=== PATIENT | female | born 1985 | race Caucasian/White ===

== ENCOUNTER → 2017-07-16 19:13 | Outpatient (CLI) | payer MEDICAID, SELFPAY ==
[2017-07-22 10:26] LABS: HPV Reflexed? NOT INDICATED
== END ==
PROVIDERS: Visit Provider Obstetrics & Gynecology
DX: R87.612 Low grade squamous intraepithelial lesion on cytologic smear of cervix (LGSIL) (principal)
CPT/HCPCS: 88175; G0145

== ENCOUNTER → 2017-12-07 17:58 | Outpatient (CLI) | payer MEDICAID, SELFPAY ==
[2017-12-15 11:14] LABS: HPV Reflexed? NOT INDICATED
== END ==
PROVIDERS: Visit Provider Obstetrics & Gynecology
DX: Z12.4 Encounter for screening for malignant neoplasm of cervix (principal)
CPT/HCPCS: 88175; G0145

== ENCOUNTER → 2019-01-03 11:15 | Outpatient (CLI) | payer MEDICAID, SELFPAY ==
[2019-01-09 08:22] LABS: HPV APTIMA, High Risk Positive (Negative)
== END ==
PROVIDERS: Visit Provider Obstetrics & Gynecology
DX: Z12.4 Encounter for screening for malignant neoplasm of cervix (principal)
CPT/HCPCS: 88175; G0145

== ENCOUNTER 2022-08-18 22:27 | Emergency (ER) | payer MEDICAID, SELFPAY ==
[2022-08-18 22:27] VITALS: BP 159/116; PULSE 90; RESP 15; TEMP 36.8; O2SAT 97; BMI 52.3
--- NOTE | 2022-08-18 23:10 | RAD_ITS ---
INDICATION: chest pain EXAMINATION/TECHNIQUE: X-RAY - XR Chest 2 Views COMPARISON: None. FINDINGS: LINES/DEVICES: None. LUNGS: No consolidation, edema or effusion. No pneumothorax. MEDIASTINUM AND CARDIOVASCULAR STRUCTURES: Cardiac silhouette not enlarged. Central airways and mediastinal contour are unremarkable. BONES AND SOFT TISSUES: Unremarkable. RAD/Chest PA and Lateral IMPRESSION: No radiographic evidence of acute cardiopulmonary disease. Electronically Signed: Ching Nielsen MD at 23:39 EDT ,
[2022-08-18 23:32] LABS: Absolute Lymphocyte Count 2.31 X10^3/uL (0.83-4.51); Absolute Neutrophil Count 4.8 X10^3/uL (2.0-7.7); Basophil# 0.06 X10^3/uL; Basophil% 0.7 % (0-1); Eosinophil# 0.23 X10^3/uL; Eosinophils% 2.8 % (0-5); Hematocrit 41.4 % (37-47); Hemoglobin 13.6 g/dL (12.0-15.0); Lymphocyte # 2.31 X10^3/ul (0.83-4.51); Lymphocyte % 27.9 % (19-41); Mean Corp Hgb Conc 32.9 g/dL (32-36); Mean Corpuscular Hgb 28.3 pg (27.0-32.0); Mean Corpuscular Volume 86.3 fL (81-99); Mean Platelet Vol. 9.3 fl (6.2-12.0); Monocyte# 0.81 X10^3/uL; Monocyte% 9.8 % (0-10); NRBC Flagged by Analyzer 0 % (0-5); Neutrophil # 4.78 X10^3/uL (2.7-7.7); Neutrophil % 57.6 % (47-70); Platelet Count 251 K/mm3 (150-450); RBC Distribution Width CV 12.9 % (11.6-14.6); RBC Distribution Width SD 40.1 fl (35.1-43.9); White Blood Count 8.3 K/mm3 (4.4-11.0)
[2022-08-19 00:04] LABS: Anion Gap 8 (5-15); BUN 13 mg/dL (7-18); BUN/Creat Ratio 15.3 RATIO (10-20); Calcium,Total 8.9 mg/dL (8.5-10.1); Chloride 104 mmol/L (98-107); Creatinine, Serum 0.85 mg/dL (0.55-1.02); EST Glomerular Filtration Rate 80 mL/min (>60); Est Glom Filt Rate - Afr Amer 97 mL/min (>60); Estimated Creatinine Clearance 71.67 ml/min; Glucose 225 mg/dL (74-106); Magnesium 1.9 mg/dL (1.6-2.6); Sodium Level 139 mmol/L (136-145); Troponin-I HS 7 pg/mL (3.0-54.0)
[2022-08-19 00:41] LABS: D-Dimer Quantitative (DVT/PE) 1.62 FEU/ug/m (0.27-0.49)
--- NOTE | 2022-08-19 00:51 | CT_ITS ---
STUDY: CTA CHEST REASON FOR EXAM: Female, 37 years old. chest pain RADIATION DOSAGE (If Supplied By Facility): CTDIvol = ( 13.85 ) mGy, DLP = ( 451.10 ) mGycm TECHNIQUE: The examination was performed with the intravenous administration of IV 100mL Isovue-370. Post-processing of the angiographic images was performed, with multiplanar reformation and 3D reconstruction. Individualized dose optimization techniques were used for this CT. COMPARISON: None. FINDINGS: Normal enhancement of the main pulmonary artery and right and left pulmonary arteries. Normal enhancement of the bilateral peripheral pulmonary arteries. There is no demonstrated pulmonary embolism. Normal thoracic aorta and visualized great vessels. There is no demonstrated aortic dissection. Normal heart and pericardium. Normal mediastinum. Normal hilar regions. Normal visualized trachea and bronchi. The lungs are well expanded. Normal pulmonary parenchyma. Normal pleura. Normal chest wall structures. Normal osseous structures. Normal visualized upper abdomen. CT/CTA Chest W/WO Contrast IMPRESSION: No demonstrated pulmonary embolism or arterial dissection. Electronically Signed: Ching Nielsen MD at 2:13 EDT ,
[2022-08-19 01:27] VITALS: PULSE 69
[2022-08-19 02:00] VITALS: BP 145/99
--- NOTE | 2022-08-19 02:19 | EX.ED.DYSGE1 ---
HPI History of Present Illness Chief Complaint: Chest Pain Narrative Narrative: Patient is a 37-year-old female with past medical history of asthma and anxiety. She reports that over the past month she has had intermittent bouts of shortness of breath and in the past 3 to 5 days has noticed some intermittent left-sided chest discomfort. She denies any history of cardiac disease at a young age she denies any illicit drug use and she denies any recent surgery travel or history of DVT/PE. She states however as the symptoms have been recurrent she is concerned for possible cardiac event/disease and therefore comes in for evaluation [facility] Medical History Allergies Asthma MCL sprain of right knee Raynaud disease Tear of lateral meniscus of right knee Home Medications NK 12/29/21 [History Last Taken Unknown] Allergy/AdvReac Type Severity Reaction Status Date / Time Sulfa (Sulfonamide Allergy Mild rash Verified 08/18/22 22:32 Antibiotics) nuts Allergy Mild rash Uncoded 12/29/21 10:26 raw fruit and veggies Allergy Mild swelling Uncoded 12/29/21 10:26 z-pack Allergy Mild face Uncoded 12/29/21 10:26 swelling Family History (Updated 12/29/21 @ 10:28 by Cari Marcelino) Mother Hypertension Cancer Diabetes Father Hypertension Heart disease Surgical History Hx of tonsillectomy Social History (Updated 12/29/21 @ 10:28 by Cari Marcelino) household members: significant other Smoking Status: Never smoker alcohol intake: current alcohol intake frequency: holidays/special occasions only ROS ROS ED Constitutional Constitutional ED: Denies chills or fever(s) ENT ENT ED: Denies sore throat Cardiovascular Cardiovascular: Reports chest pain; Denies palpitations or racing heartbeat Respiratory/Chest Respiratory/Chest: Reports dyspnea; Denies cough Gastrointestinal Gastrointestinal: Denies abdominal pain, diarrhea, nausea or vomiting Genitourinary Genitourinary ED: Denies dysuria Musculoskeletal Musculoskeletal: Denies myalgias Integumentary Denies rash Neurologic Neurologic: Denies headache(s) Hematologic/Lymphatic Hematologic/Lymphatic: Denies easy bleeding or easy bruising EXAM Physical Exam Const Vital Signs: 08/18/22 22:27 08/18/22 22:48 Temperature 98.3 F Temperature Source Temporal Pulse Rate 90 Respiratory Rate 15 Respiratory Effort Normal Non-Labored Blood Pressure 159/116 H Blood Pressure Mean 130 Pulse Ox 97 Oxygen Delivery Method Room Air Positive well nourished, well developed and obese General Appearance ED: well developed Nutritional Appearance: obese HEENT Reports moist mucous membranes Eyes PERRL and EOMs intact bilaterally Neck supple and no JVD Chest Wall Chest Narrative: There is reproducible left anterior chest wall on palpation in the intercostal muscle region ribs 4-6 without bony deformity or crepitance Resp normal respiratory effort and clear to auscultation bilaterally Resp Narrative: No nasal flaring retractions tachypnea or accessory muscle use Cardio regular rate and regular rhythm Rate: other Other Details: Radial pulses are plus 2 out of 4 bilaterally are equal and symmetric GI normal to inspection, nondistended, normoactive bowel sounds, non-tender, non-distended and no masses GI Narrative: No voluntary guarding or rigidity no pulsatile mass Auscultation: normoactive bowel sounds Palpation: soft Extremity Extremity Narrative: There is asymmetric edema that is nonpitting in nature of the left lower leg compared to right. However there is no calf tenderness and there is no overlying erythema or warmth or palpable cord Neuro oriented x3 and CN's II-XII intact bilaterally Sensorium / Orientation: alert Psych mental status grossly normal Skin no rashes or lesions noted MDM MDM MDM Narrative Medical decision making narrative: Patient presented to the ER hypertensive but otherwise with stable vitals. She is low risk for cardiovascular disease but with concern this could be an acute cardiac event possible pulmonary embolus pneumonia or cardiac dysrhythmia a work-up was obtained. Labs revealed no clinically significant findings other than elevated D-dimer. Her EKG is sinus rhythm and her troponin is normal at 7 going against acute cardiac event. Because of the elevated D-dimer a CTA of the chest was obtained. This revealed no PE dissection pneumothorax or lung infection. As she does have asymmetric swelling of the left leg compared to right there is concern that the elevated D-dimer is from a DVT. I cannot perform a venous duplex at this time in the evening. Therefore she was given 1.5 mg a kilogram of Lovenox and then an outpatient order form for venous duplex. The patient was informed of the overall negative results but need to still follow-up regarding the left leg swelling with elevated D-dimer. She agrees to do so and is otherwise hemodynamically stable and safe for discharge at this time. History & Record Review Discussion w/independent historian: Patient and Family Lab Data Attestation: I reviewed the patient's lab results. Labs: Laboratory Results - last 24 hr 08/18/22 08/18/22 08/18/22 00:06 22:48 22:48 WBC 8.3 RBC 4.80 Hgb 13.6 Hct 41.4 MCV 86.3 MCH 28.3 MCHC 32.9 RDW Std Deviation 40.1 RDW Coeff of Na 12.9 Plt Count 251 MPV 9.3 Immature Gran % (Auto) 1.200 H Neut % (Auto) 57.6 Lymph % (Auto) 27.9 [place] % (Auto) 9.8 Eos % (Auto) 2.8 Baso % (Auto) 0.7 Absolute Neuts (auto) 4.8 Absolute Lymphs (auto) 2.31 Nucleated RBC % 0 D-Dimer Quant (PE/DVT) 1.62 H* Sodium 139 Potassium 4.0 Chloride 104 Carbon Dioxide 27.0 Anion Gap 8 BUN 13 Creatinine 0.85 Estim Creat Clear Calc 71.67 Est GFR (MDRD) Af Amer 97 Est GFR (MDRD) Non-Af 80 BUN/Creatinine Ratio 15.3 Glucose 225 H Calcium 8.9 Magnesium 1.9 Troponin I High Sens 7 Radiography Diagnostic Testing: Clinical Impression(s) from Imaging Studies Chest X-Ray 08/18/22 23:10 IMPRESSION: No radiographic evidence of acute cardiopulmonary disease. Electronically Signed: Ching Nielsen MD at 23:39 EDT , Chest CTA 08/19/22 00:51 IMPRESSION: No demonstrated pulmonary embolism or arterial dissection. Electronically Signed: Ching Nielsen MD at 2:13 EDT , Chest x-ray as interpreted by the emergency medicine physician reveals no acute infiltrate pneumothorax or pleural effusion Discharge Plan Triage Chief Complaint: Chest Pain ED Provider: Clifton Lee Dx/Rx/DC Orders Clinical Impression: Acute nonspecific chest pain with low risk of coronary artery disease, Edema of left lower leg, Morbid obesity Instructions: ED Chest Pain, Uncertain Cause, ED Peripheral Edema, Unilateral Prescriptions: No Action NK Other Ambulatory Orders: Venous Duplex US, Unilateral (Stat) Facility: [facility] - Location: [facility] Ordered By: Dr. Clifton Lee Primary Care Provider: Michela Mosley NP Referrals: Michela Mosley NP, [employer] [Primary Care Provider] - Activity Restrictions/Additional Instructions: Your work-up today shows no sign of cardiac damage pneumonia or blood clot in your lungs as a cause of your symptoms. As you do have an elevated D-dimer and left leg swelling there is concern for a deep vein thrombosis. Please return to the hospital on August 19 for your outpatient venous duplex to check for a DVT/blood clot. Please return to the ER should you have any further concerns Disposition Disposition: Home, Self Care
[2022-08-19 02:27] VITALS: PULSE 71; RESP 16; O2SAT 97
[2022-08-19] MEDS: Enoxaparin 100 MG/ML Syringe 195 MG SC (02:30)
== END 2022-08-19 02:35 | disposition home or self-care (01) ==
PROVIDERS: Emergency Provider Emergency Medicine; PCP Nurse Practitioner Family; Visit Provider Emergency Medicine
DX: R07.9 Chest pain, unspecified (principal); E66.01 Morbid (severe) obesity due to excess calories; R60.0 Localized edema; F41.9 Anxiety disorder, unspecified; J45.909 Unspecified asthma, uncomplicated
CPT/HCPCS: 71046; 71275; 80048; 83735; 84484; 85025; 85379; 96372; 99284; Q9967; A4216

== ENCOUNTER → 2022-08-20 | Outpatient (CLI) | payer MEDICAID, SELFPAY ==
--- NOTE | 2022-08-18 22:36 | EKG12_ITS ---
Test Reason : CP Blood Pressure : / mmHG Vent. Rate : 090 BPM Atrial Rate : 090 BPM P-R Int : 142 ms QRS Dur : 070 ms QT Int : 336 ms P-R-T Axes : 036 011 039 degrees QTc Int : 411 ms Normal sinus rhythm Minimal voltage criteria for LVH, may be normal variant ( R in aVL ) Borderline ECG Confirmed by ANIL HAYWOOD, BEAU ([id number]), slot editor ALESHA VALDES ([id number]) on 08/21/2022 6:53:42 AM Referred By: MICHAELA Confirmed By:MICHELE MA MD
--- NOTE | 2022-08-20 12:59 | VDLE_ITS ---
Reason For Study: elevated D-Dimer Procedure LEFT This is a venous duplex using B-mode, color GSV is normal. flow and spectral Doppler. CFV is compressible, spontaneous, phasic, Exam performed in department. competent, and demonstrates normal The exam was abbreviated due to the COVID 19 augmentation. protocol. FV is compressible, spontaneous, phasic, The exam was diagnostic. competent and demonstrates normal A preliminary report was called and/or faxed augmentation. to Micheal PURCELL. POP V is compressible, spontaneous, phasic, competent and demonstrates normal augmentation. T/P Trunk is compressible. PTV is compressible. LT PerV is compressible. VL/Venous Duplex US, Unilateral Interpretation Summary There is no evidence of left lower extremity deep vein thrombosis. Left great s aphenous vein appears patent and compressible segmentally. Abbreviated Covid 19 protocol Ordering Physician: Clifton Lee Performed By: Zenon Ortega RVT
== END | disposition home or self-care (01) ==
PROVIDERS: PCP Nurse Practitioner Family; Visit Provider Emergency Medicine
DX: R07.9 Chest pain, unspecified (principal); R79.1 Abnormal coagulation profile
CPT/HCPCS: 93005; 93971

== ENCOUNTER → 2022-11-04 | Outpatient (CLI) | payer MEDICAID, SELFPAY ==
[2022-11-04 17:14] LABS: Absolute Neutrophil Count 6.1 X10^3/uL (2.0-7.7); Basophil# 0.04 X10^3/uL; Basophil% 0.5 % (0-1); Eosinophil# 0.15 X10^3/uL; Eosinophils% 1.7 % (0-5); Hematocrit 42.2 % (37-47); Hemoglobin 14.3 g/dL (12.0-15.0); Lymphocyte % 19.8 % (19-41); Mean Corp Hgb Conc 33.9 g/dL (32-36); Mean Corpuscular Hgb 27.8 pg (27.0-32.0); Mean Corpuscular Volume 81.9 fL (81-99); Mean Platelet Vol. 9.3 fl (6.2-12.0); Monocyte# 0.55 X10^3/uL; Monocyte% 6.4 % (0-10); NRBC Flagged by Analyzer 0 % (0-5); Neutrophil # 6.08 X10^3/uL (2.7-7.7); Neutrophil % 70.9 % (47-70); Platelet Count 249 K/mm3 (150-450); RBC Distribution Width CV 12.7 % (11.6-14.6); RBC Distribution Width SD 37.8 fl (35.1-43.9); Red Blood Count 5.15 M/mm3 (4.2-5.4); White Blood Count 8.6 K/mm3 (4.4-11.0)
[2022-11-05 07:49] LABS: Estradiol 178.8 pg/mL; Luteinizing Hormone 8.6 mIU/mL; Prolactin 8.2 ng/mL; T4 Free Direct 0.99 ng/dL (0.76-1.46); Thyroid Stim Hormone (TSH) 1.84 uIU/mL (0.358-3.74)
[2022-11-09 16:09] LABS: HPV APTIMA, High Risk Negative (Negative)
[2022-11-10 12:09] LABS: Testosterone, % Free 1.04 % (0.50-2.80); Testosterone, Free 0.44 ng/dL (0.10-0.85); Testosterone, Total 42 ng/dL (8-60)
== END | disposition home or self-care (01) ==
LOC: WOBLAB 16:32
PROVIDERS: PCP Nurse Practitioner Family; Visit Provider Nurse Practitioner Women's Health
DX: N93.9 Abnormal uterine and vaginal bleeding, unspecified (principal); Z12.4 Encounter for screening for malignant neoplasm of cervix
CPT/HCPCS: 36415; 82670; 83001; 83002; 84146; 84402; 84403; 84439; 84443; 85025; 87624; 88175; G0145

== ENCOUNTER 2023-01-04 13:57 | Emergency (ER) | payer MEDICAID, SELFPAY ==
[2023-01-04 13:59] VITALS: BP 121/107; PULSE 95; RESP 18; TEMP 36.3; O2SAT 96
[2023-01-04 15:03] LABS: Absolute Lymphocyte Count 2.15 X10^3/uL (0.83-4.51); Absolute Neutrophil Count 7.3 X10^3/uL (2.0-7.7); Basophil# 0.06 X10^3/uL; Basophil% 0.6 % (0-1); Eosinophil# 0.17 X10^3/uL; Eosinophils% 1.6 % (0-5); Hematocrit 43.5 % (37-47); Hemoglobin 14.6 g/dL (12.0-15.0); Lymphocyte # 2.15 X10^3/ul (0.83-4.51); Lymphocyte % 20.5 % (19-41); Mean Corp Hgb Conc 33.6 g/dL (32-36); Mean Corpuscular Volume 83.5 fL (81-99); Mean Platelet Vol. 9.2 fl (6.2-12.0); Monocyte# 0.66 X10^3/uL; Monocyte% 6.3 % (0-10); NRBC Flagged by Analyzer 0 % (0-5); Neutrophil # 7.27 X10^3/uL (2.7-7.7); Neutrophil % 69.2 % (47-70); Platelet Count 263 K/mm3 (150-450); RBC Distribution Width CV 13.1 % (11.6-14.6); RBC Distribution Width SD 39.3 fl (35.1-43.9); Red Blood Count 5.21 M/mm3 (4.2-5.4); White Blood Count 10.5 K/mm3 (4.4-11.0)
[2023-01-04 15:15] LABS: ALB/GLOB Ratio 0.7 RATIO (0.9-2.4); AST(SGOT) 52 U/L (15-37); Alanine Aminotransfer ALT/SGPT 78 U/L (13-56); Albumin, Serum 2.9 g/dL (3.2-5.0); Alkaline Phosphatase 103 U/L (45-117); Anion Gap 3 (5-15); BUN 10 mg/dL (7-18); BUN/Creat Ratio 12.8 RATIO (10-20); Calcium,Total 8.7 mg/dL (8.5-10.1); Chloride 104 mmol/L (98-107); Creatinine, Serum 0.78 mg/dL (0.55-1.02); EST Glomerular Filtration Rate 88 mL/min (>60); Est Glom Filt Rate - Afr Amer 107 mL/min (>60); Globulin 4.3 g/dL (2.2-4.2); Glucose 167 mg/dL (74-106); Potassium 3.7 mmol/L (3.5-5.1); Protein, Total 7.2 g/dL (6.4-8.2); Sodium Level 138 mmol/L (136-145)
[2023-01-04 15:19] LABS: Internal QC Validated? YES +Cl - CLEAR BKGD; Pregnancy, Serum, hCG Quali. NEGATIVE Negative
--- NOTE | 2023-01-04 15:56 | ED.VIS.GI ---
HPI HPI - GI History of Present Illness Chief Complaint: Flank Pain Informant: patient Narrative Narrative: 4 days sudden onset pain in the right flank, colicky today, has been constant, and worsening. No urinary symptoms. Some nausea but no vomiting. Not associated with meals. Has incidentally had some vaginal bleeding recently for which she was at the [facility] today, and they referred her here to the emergency department for this. She has had prior cholecystectomy. She denies any jaundice or diffuse pruritus, confusion, fevers or chills. She states the pain started in her right groin, and then progressed into the right low back, and now it is hurting in her right flank in addition to those areas. She states she has a history of kidney stones, and states this feels different especially because she usually has pain that starts in her right low back and then goes down into the groin not the other way around which it is now. She admits that it has been colicky. [facility] Medical History (Updated 01/04/23 @ 17:[address] Luis Angel Sutton MD) Allergies Asthma MCL sprain of right knee Raynaud disease Tear of lateral meniscus of right knee Home Medications naproxen 500 mg tablet 500 mg PO BID #14 tabs 01/04/23 [Rx Last Taken Unknown] tramadol 50 mg tablet 50 mg PO Q6H PRN pain 3 days #10 tabs 01/04/23 [Rx Last Taken Unknown] Allergy/AdvReac Type Severity Reaction Status Date / Time Sulfa (Sulfonamide Allergy Mild rash Verified 01/04/23 13:59 Antibiotics) azithromycin Allergy Swelling Verified 01/04/23 13:59 [From Zithromax Z-Ananda] Food Allergies: Uncoded Allergy Swelling Verified 01/04/23 13:59 tree nut Allergy Rash Verified 01/04/23 13:59 Family History (Updated 12/29/21 @ 10:28 by Cari Marcelino) Mother Hypertension Cancer Diabetes Father Hypertension Heart disease Surgical History (Updated 01/04/23 @ 15:[address] Luis Angel Sutton MD) History of cholecystectomy Hx of tonsillectomy Social History household members: significant other Smoking Status: Never smoker alcohol intake: current alcohol intake frequency: holidays/special occasions only ROS ROS ED Constitutional Constitutional ED: Denies chills or fever(s) Eyes Eyes: Denies change in vision or diplopia ENT ENT ED: Denies rhinorrhea or sore throat Cardiovascular Cardiovascular: Denies chest pain or palpitations Respiratory/Chest Respiratory/Chest: Reports dyspnea, wheezing and other Details: asthma flares up when I'm stressed ; Denies cough Gastrointestinal Gastrointestinal: Reports abdominal pain, diarrhea and nausea; Denies melena or vomiting Genitourinary Genitourinary ED: Reports as per HPI and urinary frequency; Denies dysuria or hematuria Musculoskeletal Musculoskeletal: Reports back pain; Denies neck pain Integumentary Denies abscess or rash Neurologic Neurologic: Denies headache(s), paresthesias or weakness Psychiatric Psychiatric: Denies anxiety or suicidal thoughts EXAM Physical Exam Const Vital Signs: 01/04/23 13:59 01/04/23 15:58 Temperature 97.4 F L Temperature Source Temporal Pulse Rate 95 Respiratory Rate 18 Respiratory Effort Normal Non-Labored Respiratory Pattern Normal Blood Pressure 121/107 H Blood Pressure Mean 111 Pulse Ox 96 Oxygen Delivery Method Room Air Positive well nourished, well developed and obese General Appearance ED: well developed and NAD Nutritional Appearance: obese HEENT Reports moist mucous membranes normocephalic and atraumatic Eyes PERRL and EOMs intact bilaterally Neck full ROM and supple Resp normal respiratory effort and clear to auscultation bilaterally Cardio regular rate, regular rhythm and no murmurs GI non-distended GI Narrative: Diffusely tender. No guarding or rebound. Less tender right upper quadrant and epigastrium, left upper quadrant. More tender right than left. Auscultation: normoactive bowel sounds Palpation: soft Back/Spine General Back: CVA tenderness right and other FROM Extremity normal to inspection General Extremety ED: Negative for edema, pulses abnormal or tenderness General Extremity: Negative for edema or pulses abnormal Neuro oriented x3, CN's II-XII intact bilaterally and no sensory deficits noted Sensorium / Orientation: awake and alert Motor Exam: strength 5/5 throughout Skin no rashes or lesions noted and no wounds MDM MDM MDM Narrative Medical decision making narrative: Obtain labs, urinalysis, all of which was unremarkable except for very slightly elevated AST and ALT, 52 and 78 respectively, and CT abdomen/pelvis obtained given kidney stone in the differential diagnosis, less likely to be hepatic in etiology, fatty liver noted, otherwise negative for any acute, I reviewed the images and the report and I agree with it. Patient has had a cholecystectomy in her total bilirubin and lipase are normal so I do not think we need an ultrasound or any other emergent testing right now. On further evaluation, it seems that the patient told nursing that pain is worse with movement, and it also goes into her right lower rib cage and her right pelvic bone. I confirmed this by palpating these areas which are also tender. She goes on to suggest that she was told she may have fibromyalgia and she does have chronic pain, could this be related. I think the answer is yes. I think now this is more musculoskeletal. She is reassured, given prescriptions for Naprosyn and some tramadol and discharged to follow-up. She is comfortable with that plan. Of note, urinalysis was contaminated with blood and shows no acute infection she does have vaginal bleeding now. Lab Data Attestation: I reviewed the patient's lab results. Labs: Laboratory Results - last 24 hr 01/04/23 01/04/23 01/04/23 14:40 16:00 16:36 WBC 10.5 RBC 5.21 Hgb 14.6 Hct 43.5 MCV 83.5 MCH 28.0 MCHC 33.6 RDW Std Deviation 39.3 RDW Coeff of Na 13.1 Plt Count 263 MPV 9.2 Immature Gran % (Auto) 1.800 H Neut % (Auto) 69.2 Lymph % (Auto) 20.5 [place] % (Auto) 6.3 Eos % (Auto) 1.6 Baso % (Auto) 0.6 Absolute Neuts (auto) 7.3 Absolute Lymphs (auto) 2.15 Nucleated RBC % 0 Sodium 138 Potassium 3.7 Chloride 104 Carbon Dioxide 31.0 Anion Gap 3 L BUN 10 Creatinine 0.78 Est GFR (MDRD) Af Amer 107 Est GFR (MDRD) Non-Af 88 BUN/Creatinine Ratio 12.8 Glucose 167 H Calcium 8.7 Total Bilirubin 0.30 AST 52 H ALT 78 H Alkaline Phosphatase 103 Total Protein 7.2 Albumin 2.9 L Globulin 4.3 H Albumin/Globulin Ratio 0.7 L Lipase 41 Serum , Qual NEGATIVE Urine Color Yellow Urine Clarity Cloudy Urine pH 5.0 Ur Specific Dickerson 1.025 Urine Protein 30 H Urine Glucose (UA) Normal Urine Ketones 15 H Urine Occult Blood 250 H Urine Nitrite Negative Urine Bilirubin 1 H Urine Urobilinogen 1 H Ur Leukocyte Esterase 100 H Urine RBC > 100 SEEN Urine WBC 0-5 SEEN Ur Squamous Epith Cells 0-5 SEEN Urine Bacteria 0 SEEN Urine Mucus 0 SEEN Radiography Diagnostic Testing: Clinical Impression(s) from Imaging Studies Abdomen/Pelvis CT 01/04/23 16:07 IMPRESSION: Nonspecific fatty infiltrated liver. Status post cholecystectomy. No acute abnormality Electronically Signed: Jairo Harmon MD at 16:30 EDT , Discharge Plan Triage Chief Complaint: Flank Pain ED Provider: Luis Angel Sutton Dx/Rx/DC Orders Clinical Impression: Muscular abdominal pain in right flank Instructions: ED Muscle Strain, Abdomen, ED Myofascial Pain Syndrome Prescriptions: New tramadol 50 mg tablet 50 mg PO Q6H PRN (Reason: pain) 3 Days Qty: 10 0RF naproxen 500 mg tablet 500 mg PO BID Qty: 14 0RF Primary Care Provider: YOSEF AL Referrals: Michela Mosley NP, [employer]PER[employer] [Non-Staff] - 1 Week if not improving Disposition Disposition: Home, Self Care
--- NOTE | 2023-01-04 16:07 | CT_ITS ---
STUDY: CT ABDOMEN AND PELVIS WITHOUT CONTRAST REASON FOR EXAM: Female, 37 years old. R flank pain RADIATION DOSAGE (If Supplied By Facility): CTDIvol = ( 22.71 ) mGy, DLP = ( 1189.73 ) mGycm TECHNIQUE: Transaxial images were obtained from the dome of the diaphragm to the symphysis pubis without oral contrast, and without intravenous contrast. Sagittal and coronal images were reconstructed. Individualized dose optimization techniques were used for this CT. COMPARISON: Report only FINDINGS: The visualized lung bases are unremarkable. The visualized portions of the heart are within normal limits. Mildly prominent and fatty infiltrated liver without mass or bile duct dilatation. Status post cholecystectomy.. Normal spleen. Normal pancreas. Normal bilateral adrenal glands. Normal right kidney. Normal left kidney. Normal visualized stomach. Normal small intestine. Diffuse fecal retention noted within the colon. No evidence for acute appendicitis Normal abdominal aorta. Normal inferior vena cava. Normal retroperitoneum. Normal urinary bladder. Normal abdominal wall. Lumbar spine demonstrates mild spondylosis. CT/Abdomen/Pelvis without Cont IMPRESSION: Nonspecific fatty infiltrated liver. Status post cholecystectomy. No acute abnormality Electronically Signed: Jairo Harmon MD at 16:30 EDT ,
[2023-01-04] MEDS: Ketorolac 30 MG/ML Syringe IV (16:23)
[2023-01-04] MEDS: Ondansetron 4 MG/2 ML Vial IV (16:23)
[2023-01-04 16:26] LABS: Lipase 41 U/L (13-75)
[2023-01-04 16:42] LABS: Bacteria 0 SEEN /hpf (None Seen); Mucous, Urine 0 SEEN /hpf (<or=2+)
[2023-01-04 16:50] LABS: Color, Urine Yellow (Yellow); Glucose, Dipstick Normal (Normal); Ketone-Dipstick 15 mg/dl (Negative); Leukocyte Esterase-Dipstick 100 /ul (Negative); Nitrite-Dipstick Negative (Negative); Occult Blood-Urine 250 /ul (Negative); Protein-Dipstick 30 mg/dl (Negative); Specific Gravity, Urine 1.025 (1.002-1.030); Urine Clarity Cloudy (Clear); Urine Urobilinogen 1 mg/dl (Normal)
[2023-01-04 16:52] LABS: Urine Bilirubin Dipstick 1 mg/dL (Negative)
[2023-01-04 17:00] VITALS: BMI 52.4
[2023-01-04 17:03] LABS: Red Blood Cells-Urine > 100 SEEN /hpf (0-5); Squamous Epithelial Cells - UA 0-5 SEEN /hpf (5-10); White Blood Cells 0-5 SEEN /hpf (0-5)
[2023-01-04 17:42] VITALS: PULSE 74; RESP 16; O2SAT 99
[2023-01-04] MEDS: traMADol 50 MG Tablet PO (17:54)
== END 2023-01-04 18:00 | disposition home or self-care (01) ==
PROVIDERS: Emergency Provider Emergency Medicine; Visit Provider Emergency Medicine
DX: M79.18 Myalgia, other site (principal); R10.9 Unspecified abdominal pain; G89.29 Other chronic pain; R07.81 Pleurodynia; R11.0 Nausea; N93.9 Abnormal uterine and vaginal bleeding, unspecified; J45.909 Unspecified asthma, uncomplicated; E66.9 Obesity, unspecified; Z87.442 Personal history of urinary calculi
CPT/HCPCS: 74176; 80053; 81001; 83690; 84703; 85025; 96374; 96375; 99284; A4216; J2405

== ENCOUNTER 2023-11-24 13:42 | Emergency (ER) | payer MEDICAID, SELFPAY ==
[2023-11-24 13:44] VITALS: BP 162/74; PULSE 136; RESP 26; TEMP 36; O2SAT 98
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
[2023-11-24 14:38] VITALS: BP 126/78; PULSE 78; RESP 16; O2SAT 98
[2023-11-24 15:03] LABS: Color, Urine Yellow (Yellow); Glucose, Dipstick 1000 mg/dl (Normal); Ketone-Dipstick 15 mg/dl (Negative); Leukocyte Esterase-Dipstick Negative /ul (Negative); Nitrite-Dipstick Negative (Negative); Occult Blood-Urine Negative /ul (Negative); Protein-Dipstick 100 mg/dl (Negative); Specific Gravity, Urine 1.025 (1.002-1.030); Urine Bilirubin Dipstick Negative (Negative); Urine Clarity Sl. Cloudy (Clear); Urine Urobilinogen Normal (Normal)
[2023-11-24 15:11] LABS: Red Blood Cells-Urine 0-5 SEEN /hpf (0-5); Squamous Epithelial Cells - UA 0-5 SEEN /hpf (5-10); White Blood Cells 0-5 SEEN /hpf (0-5)
[2023-11-24 15:13] LABS: Bacteria 3+ /hpf (None Seen); Mucous, Urine 1+ /hpf (<or=2+)
[2023-11-24 15:25] LABS: ALB/GLOB Ratio 0.8 RATIO (0.9-2.4); AST(SGOT) 25 U/L (15-37); Alanine Aminotransfer ALT/SGPT 50 U/L (13-56); Albumin, Serum 3.5 g/dL (3.2-5.0); Alkaline Phosphatase 106 U/L (45-117); Anion Gap 10 (5-15); BUN 10 mg/dL (7-18); BUN/Creat Ratio 9.3 RATIO (10-20); Calcium,Total 9.2 mg/dL (8.5-10.1); Chloride 102 mmol/L (98-107); Creatinine, Serum 1.07 mg/dL (0.55-1.02); EST Glomerular Filtration Rate 61 mL/min (>60); Est Glom Filt Rate - Afr Amer 74 mL/min (>60); Globulin 4.5 g/dL (2.2-4.2); Glucose 342 mg/dL (74-106); Potassium 3.9 mmol/L (3.5-5.1); Sodium Level 135 mmol/L (136-145); Thyroid Stim Hormone (TSH) 1.57 uIU/mL (0.358-3.74)
[2023-11-24 15:33] LABS: Amphetamine Urine VISTA NEGATIVE (<1000 ng/mL); Barbiturate Urine VISTA NEGATIVE (< 200 ng/mL); Benzodiazepine Urine VISTA NEGATIVE (< 200 ng/mL); Cocaine Urine VISTA NEGATIVE (< 300 ng/mL); Ecstacy Urine VISTA NEGATIVE (< 500 ng/mL); Methadone Urine VISTA NEGATIVE (< 300 ng/mL); PCP Urine VISTA NEGATIVE (< 25 ng/mL); THC Urine VISTA POSITIVE (< 50 ng/mL); Vista UDS pH Range 5
[2023-11-24 15:35] LABS: Absolute Lymphocyte Count 1.74 X10^3/uL (0.83-4.51); Absolute Neutrophil Count 7.8 X10^3/uL (2.0-7.7); Basophil# 0.05 X10^3/uL; Basophil% 0.5 % (0-1); Eosinophil# 0.16 X10^3/uL; Eosinophils% 1.5 % (0-5); Hematocrit 43.4 % (37-47); Hemoglobin 14.4 g/dL (12.0-15.0); Lymphocyte # 1.74 X10^3/ul (0.83-4.51); Lymphocyte % 16.8 % (19-41); Mean Corp Hgb Conc 33.2 g/dL (32-36); Mean Corpuscular Hgb 27.2 pg (27.0-32.0); Mean Platelet Vol. 9.6 fl (6.2-12.0); Monocyte# 0.51 X10^3/uL; Monocyte% 4.9 % (0-10); NRBC Flagged by Analyzer 0 % (0-5); Neutrophil % 75.5 % (47-70); Platelet Count 312 K/mm3 (150-450); RBC Distribution Width CV 12.4 % (11.6-14.6); RBC Distribution Width SD 36.8 fl (35.1-43.9); Red Blood Count 5.29 M/mm3 (4.2-5.4); White Blood Count 10.3 K/mm3 (4.4-11.0)
[2023-11-24 16:06] LABS: Alcohol, Blood (Medical)-Serum < 3.0 mg/dL
[2023-11-24 16:08] LABS: Internal QC Validated? YES +Cl - CLEAR BKGD; Pregnancy, Serum, hCG Quali. NEGATIVE Negative
--- NOTE | 2023-11-24 16:13 | NURSING ---
TALKED TO ROSS AT CRISIS. PATIENT IS MEDICALLY CLEARED
--- NOTE | 2023-11-24 16:18 | NURSING ---
FAXED CHART TO CRISIS
--- NOTE | 2023-11-24 17:46 | NURSING ---
[facility] IN ROOM
--- NOTE | 2023-11-24 22:58 | ED.RN ---
pt accepted to [facility] [address] Alicea n2n [phone]. requested pink slip be faxed, done. Fish loera 7am.
[2023-11-24 23:00] VITALS: BP 121/78; PULSE 82; RESP 14; O2SAT 96
--- NOTE | 2023-11-25 07:30 | ED.RN ---
Attempted to call report to [place] twice, no answer either time.
[2023-11-25 08:25] VITALS: BP 146/74; PULSE 60; RESP 17; TEMP 36.7; O2SAT 97
== END 2023-11-25 08:27 ==
LOC: ED 14:09
PROVIDERS: Emergency Provider Emergency Medicine; PCP Nurse Practitioner Family; Visit Provider Emergency Medicine
DX: F31.9 Bipolar disorder, unspecified (principal); F41.9 Anxiety disorder, unspecified; Z90.49 Acquired absence of other specified parts of digestive tract; I73.00 Raynaud's syndrome without gangrene
CPT/HCPCS: 80053; 80307; 80320; 81001; 84443; 84703; 85025; 99284; G0480

== ENCOUNTER 2024-02-14 16:14 | Emergency (ER) | payer MEDICAID, SELFPAY ==
[2024-02-14 16:14] VITALS: BP 155/93; PULSE 94; RESP 16; TEMP 36; O2SAT 94; BMI 49.4
--- NOTE | 2024-02-14 16:56 | EDS_ITS ---
HPI History of Present Illness Chief Complaint: Allergic Reaction Informant: patient and spouse/S.O. Narrative Narrative: 38-year-old female having a reaction to peanuts. She states the nature of her exposure today was smelling peanut oil from [employer], they were getting food to door Dash to someone. She states she has had some facial swelling, throat itching, tongue swelling, and chest discomfort. She states it started 2 hours ago, and is no different/better now, she has had no treatment. They are supposed to have an EpiPen for this but the lieberman for getting ask her doctor. [facility] Medical History MCL sprain of right knee Tear of lateral meniscus of right knee Allergies Raynaud disease Asthma Home Medications ?Medication ?Instructions ?Recorded ?Last Taken ?Type buspirone 15 mg tablet 15 mg PO TID 11/24/23 11/24/23 History celecoxib 200 mg capsule 200 mg PO DAILY 11/24/23 11/24/23 History cetirizine 10 mg tablet 10 mg PO DAILY 11/24/23 Unknown History dicyclomine 20 mg tablet 20 mg PO 4X/DAY PRN abdominal pain 11/24/23 11/24/23 History gabapentin 300 mg capsule 300 mg PO TID 11/24/23 11/24/23 History lisinopril 5 mg tablet 5 mg PO DAILY 11/24/23 Unknown History metformin 500 mg tablet 500 mg PO BID 11/24/23 11/24/23 History montelukast 10 mg tablet 10 mg PO DAILY 11/24/23 11/24/23 History zolpidem 10 mg tablet 10 mg PO QHS PRN 11/24/23 11/23/23 History epinephrine 0.3 mg/0.3 mL 0.3 mg (0.3 mL) IM Q10M PRN PRN 02/14/24 Unknown Rx injection, auto-injector anaphylaxis #2 ea prednisone 20 mg tablet 40 mg (2 x 20 mg) PO DAILY #4 02/14/24 Unknown Rx TABLETS Allergy/AdvReac Type Severity Reaction Status Date / Time bee venom protein (honey bee) Allergy Severe Anaphylaxis Verified 02/14/24 16:14 Sulfa (Sulfonamide Allergy Mild rash Verified 02/14/24 16:14 Antibiotics) azithromycin (From Zithromax Allergy Swelling Verified 02/14/24 16:14 Z-Ananda) Food Allergies: Uncoded Allergy Swelling Verified 02/14/24 16:14 tree nut Allergy Rash Verified 02/14/24 16:14 Family History Mother Hypertension Cancer Diabetes Father Hypertension Heart disease Surgical History History of cholecystectomy Hx of tonsillectomy Social History household members: significant other Smoking Status: Never smoker alcohol intake: current alcohol intake frequency: holidays/special occasions only ROS ROS ED Constitutional Constitutional ED: Denies chills or fever(s) Eyes Eyes: Denies change in vision or diplopia ENT ENT ED: Reports as per HPI, throat swelling and tongue swelling; Denies rhinorrhea or sore throat Cardiovascular Cardiovascular: Reports chest pain; Denies palpitations or syncope Respiratory/Chest Respiratory/Chest: Reports dyspnea; Denies cough Gastrointestinal Gastrointestinal: Denies abdominal pain, diarrhea, nausea or vomiting Genitourinary Genitourinary ED: Denies dysuria or hematuria Musculoskeletal Musculoskeletal: Denies back pain or neck pain Integumentary Denies abscess or rash Neurologic Neurologic: Denies headache(s), paresthesias or weakness Psychiatric Psychiatric: Denies anxiety or suicidal thoughts EXAM Physical Exam Const Vital Signs: 02/14/24 16:14 Temperature 96.8 F L Temperature Source Temporal Pulse Rate 94 Respiratory Rate 16 Blood Pressure 155/93 H Blood Pressure Mean 113 Pulse Ox 94 Oxygen Delivery Method Room Air Positive well nourished, well developed and obese Constitutional Narrative: Well-appearing in no distress. Conversive in full senses. No stridor. Lying supine comfortably. General Appearance ED: well developed and NAD Nutritional Appearance: obese HEENT Reports moist mucous membranes HEENT Narrative: No objective tongue, lip, facial edema. Posterior pharynx clear. No trismus. normocephalic and atraumatic Eyes PERRL and EOMs intact bilaterally Neck full ROM and supple Resp normal respiratory effort and clear to auscultation bilaterally Cardio regular rate, regular rhythm and no murmurs Back/Spine no CVA tenderness General Back: other FROM Extremity normal to inspection General Extremety ED: Negative for edema, pulses abnormal or tenderness General Extremity: Negative for edema or pulses abnormal Neuro oriented x3, CN's II-XII intact bilaterally and no sensory deficits noted Sensorium / Orientation: awake and alert Motor Exam: strength 5/5 throughout Skin no rashes or lesions noted and no wounds MDM MDM MDM Narrative Medical decision making narrative: Patient treated with prednisone and an EpiPen and she was observed. Her symptoms resolved she felt much better. Objectively she did not appear to have anaphylaxis or any objective edema, but her obesity also limits the exam to some degree. I am not concerned about her airway and uncomfortable with her going home. Given her prescription for EpiPen as well as a couple more days of prednisone and reasons to return she is comfortable with that plan. Critical Care Time Critical Care Time: Yes Critical care time (excluding procedures): 30-74 minutes (33 min), Including time spent:, Discussing w/Patient &/or Family/Account Manager Trainee and Performing Direct Patient Care at Bedside Discharge Plan Triage Chief Complaint: Allergic Reaction ED Provider: Luis Angel Sutton Dx/Rx/DC Orders Clinical Impression: Allergic reaction to peanut Instructions: ED Food Allergy Prescriptions: New prednisone 20 mg tablet 40 mg PO DAILY Qty: 4 0RF epinephrine 0.3 mg/0.3 mL auto-injector 0.3 mg IM Q10M PRN PRN (Reason: anaphylaxis) Qty: 2 0RF Rx Instructions: for 2 doses No Action celecoxib 200 mg capsule 200 mg PO DAILY cetirizine 10 mg tablet 10 mg PO DAILY dicyclomine 20 mg tablet 20 mg PO 4X/DAY PRN (Reason: abdominal pain) Patient Comments: PT STATES SHE ONLY TAKES 1 TABLET A DAY buspirone 15 mg tablet 15 mg PO TID metformin 500 mg tablet 500 mg PO BID gabapentin 300 mg capsule 300 mg PO TID montelukast 10 mg tablet 10 mg PO DAILY lisinopril 5 mg tablet 5 mg PO DAILY zolpidem 10 mg tablet 10 mg PO QHS PRN Primary Care Provider: Jodie Lozano Referrals: Jodie Lozano, HAIRSPRING VIBRATOR-C [Primary Care Provider] - Print Language: Ukrainian Disposition Disposition: Home, Self Care
[2024-02-14] MEDS: Epi Pen (EQUIV) 0.3 MG Syringe IM (17:02)
[2024-02-14] MEDS: predniSONE 20 MG Tablet 40 MG PO (17:02)
[2024-02-14 18:14] VITALS: BP 135/79
[2024-02-14 19:01] VITALS: BP 150/95; PULSE 82; RESP 16; TEMP 36.7; O2SAT 99
== END 2024-02-14 19:03 | disposition home or self-care (01) ==
LOC: ED 17:11
PROVIDERS: Emergency Provider Emergency Medicine; PCP Nurse Practitioner Family; Visit Provider Emergency Medicine
DX: T78.1XXA Other adverse food reactions, not elsewhere classified, initial encounter (principal); Z90.49 Acquired absence of other specified parts of digestive tract; R07.9 Chest pain, unspecified; R06.00 Dyspnea, unspecified
CPT/HCPCS: 99283